=== PATIENT | male | born 1955 | race Caucasian/White ===

== ENCOUNTER 2017-10-13 09:27 | Outpatient (CLI) | payer OTHER | END 2017-10-13 09:30 | disposition home or self-care (01) | LOC: SONOGRAMA 09:27 | DX: E04.1 Nontoxic single thyroid nodule (principal) ==

== ENCOUNTER 2021-05-11 10:52 | Outpatient (CLI) | payer OTHER ==
[2021-06-09] MEDS ORDERED: ZESTRIL10 M1 PO (12:17)
[2021-06-09] MEDS ORDERED: GLUMETZA1000 MG PO (12:17)
[2021-06-09] MEDS ORDERED: [UNRECOGNIZED DRUG - OTHER] PO (12:19)
[2021-06-09] MEDS ORDERED: HUMALOG100 UNIT/2 SQ (12:19)
[2021-06-09] MEDS ORDERED: [UNRECOGNIZED DRUG - OTHER] (12:21)
[2021-06-09] MEDS ORDERED: HUMLOG (12:22)
== END 2021-05-11 10:56 | disposition home or self-care (01) ==
LOC: SONOGRAMA 10:52
PROVIDERS: ATTEND Pathology Anatomic Pathology & Clinical Pathology
DX: N62 Hypertrophy of breast (principal)

== ENCOUNTER 2022-04-22 09:15 | Inpatient (IN) | payer OTHER ==
[~2022-04-22] VITALS: Ht 172.7 cm; Wt 84.8 kg
[~2022-04-22 09:15] MED LIST: GLUMETZA1000 MG PO; HUMALOG100 UNIT/2 SQ; HUMLOG; ZESTRIL10 M1 PO; [UNRECOGNIZED DRUG - OTHER]; [UNRECOGNIZED DRUG - OTHER] PO
[2022-04-28] MEDS ORDERED: BRIMONIDINE TART5 ML (11:07)
[2022-04-28] MEDS ORDERED: ALLOPURINOL300 MG (11:07)
[2022-04-29] MEDS ORDERED: GABAPENTIN100 MG PO (12:19)
[2022-04-29] MEDS ORDERED: NORFLEX100MG PO (12:19)
[2022-04-29] MEDS ORDERED: XARELTO10 MG PO (12:20)
[2022-04-29] MEDS ORDERED: OXYC1TAB9 PO (12:21)
== END 2022-04-29 16:46 | disposition home or self-care (01) | DRG 470 ==
LOC: SURG 04-27 04:35 → O/R 04-27 04:35 → SURH 04-27 07:00 → SURG 04-27 12:46
PROVIDERS: ADMIT Orthopaedic Surgery; ATTEND Orthopaedic Surgery
PROC: 0SRD0JZ Replacement of Left Knee Joint with Synthetic Substitute, Open Approach (ICD-10-PCS; principal; 2022-04-27 07:00)
DX: M17.12 Unilateral primary osteoarthritis, left knee (principal); D62 Acute posthemorrhagic anemia; M85.662 Other cyst of bone, left lower leg; R26.89 Other abnormalities of gait and mobility; E11.9 Type 2 diabetes mellitus without complications; I10 Essential (primary) hypertension; Z79.4 Long term (current) use of insulin; Z79.84 Long term (current) use of oral hypoglycemic drugs